=== PATIENT | male | born 1960 | race Caucasian/White ===

== ENCOUNTER 2023-02-20 10:30 | Emergency (ER) | payer OTHER, SELFPAY ==
[2023-02-20 10:35] VITALS: BP 169/87; PULSE 74; RESP 16; TEMP 36.9; O2SAT 95; BMI 31.6
--- NOTE | 2023-02-20 10:53 | ED.UPPEXIN1 ---
HPI - Extremity Injury (Upper) General Chief Complaint: Extremity Injury, Upper Stated Complaint: RT ARM PAIN Time Seen by Provider: 02/20/23 10:36 Source: patient Mode of arrival: walk-in Limitations: no limitations History of Present Illness HPI narrative: patient was attempting to lift a lawnmower and while flexing the right biceps he felt a tear and experienced sudden onset of pain in the right biceps. He has been taking ibuprofen since then. He is right handed. Pain has been persistent since the injury. He wants to know if anything serious is wrong. Related Data Home Medications Medication Instructions Recorded Confirmed amlodipine 10 mg tablet 10 mg PO DAILY 02/20/23 02/20/23 atorvastatin 40 mg tablet 40 mg PO BEDTIME 02/20/23 02/20/23 ezetimibe 10 mg tablet 10 mg PO DAILY 02/20/23 02/20/23 omeprazole 20 mg capsule,delayed 20 mg PO DAILY 02/20/23 02/20/23 release Previous Rx's Medication Instructions Recorded nabumetone 750 mg tablet 750 mg PO BID PRN pain #20 tabs 02/20/23 Allergies Allergy/AdvReac Type Severity Reaction Status Date / Time No Known Drug Allergies Allergy Verified 02/20/23 10:38 PFSH PFS Social History Smoking status: Never smoker Exam Narrative Exam Narrative: Nurses notes and vital signs reviewed and patient is not hypoxic. afebrile General: Well-appearing and in no apparent distress. Skin: Warm, dry, no pallor noted. No rash. Cardiovascular: Normal peripheral perfusion. Respiratory: No accessory muscle use or respiratory distress. Musculoskeletal: tenderness along the right biceps. He also has tenderness at the distal biceps tendon. There is some tenderness at the proximal forearm as well. He has good right biceps flexion on resistance and I do not see evidence of complete distal biceps tendon rupture. Distal right UE with normal sensation and ROM. No upper extremity edema/swelling Neurological: A&O x4. No cranial nerve dysfunction observed. No truncal ataxia. Moves all extremities. Sensation intact. Psychiatric: Cooperative and interactive. Normal mood and affect. Constitutional Vital Signs, click to edit/add: Last Vital Signs Temp 98.4 F 02/20/23 10:35 Pulse 74 02/20/23 10:35 Resp 16 02/20/23 10:35 BP 169/87 H 02/20/23 10:35 Pulse Ox 95 02/20/23 10:35 O2 Del Method Room Air 02/20/23 10:35 Course Vital Signs Vital signs: Vital Signs Temperature 98.4 F 02/20/23 10:35 Pulse Rate 74 02/20/23 10:35 Respiratory Rate 16 02/20/23 10:35 Blood Pressure 169/87 H 02/20/23 10:35 Pulse Oximetry 95 02/20/23 10:35 Oxygen Delivery Method Room Air 02/20/23 10:35 Temperature 98.4 F 02/20/23 10:35 Pulse Rate 74 02/20/23 10:35 Respiratory Rate 16 02/20/23 10:35 Blood Pressure 169/87 H 02/20/23 10:35 Pulse Oximetry 95 02/20/23 10:35 Oxygen Delivery Method Room Air 02/20/23 10:35 MDM - Extremity Injury (Upper) MDM Narrative Medical decision making narrative: Patient injured the right biceps and has tenderness along the distal biceps tendon. He did not sustain blunt trauma or fall and xrays will be of no use in this instance. He was prescribed Relafen for pain and scheduled to see Dr Serrano on Wednesday02/22/23 at 830am. Discharge Plan Discharge Chief Complaint: Extremity Injury, Upper Clinical Impression: Muscle strain of right upper extremity, Biceps tendonitis Patient Disposition: Home, Self-Care Time of Disposition Decision: 10:50 Prescriptions / Home Meds: New nabumetone 750 mg tablet 750 mg PO BID PRN (Reason: pain) Qty: 20 0RF No Action amlodipine 10 mg tablet 10 mg PO DAILY atorvastatin 40 mg tablet 40 mg PO BEDTIME ezetimibe 10 mg tablet 10 mg PO DAILY omeprazole 20 mg capsule,delayed release(DR/EC) 20 mg PO DAILY Instructions: Muscle Strain (ED), Arm Pain (ED) Stand Alone Forms: Portal Instructions Referrals: Wes Serrano MD [Physician] - 02/22/23 8:30 am
== END 2023-02-20 11:06 | disposition home or self-care (01) ==
PROVIDERS: Emergency Provider Emergency Medicine; PCP Family Medicine
DX: S46.211A Strain of muscle, fascia and tendon of other parts of biceps, right arm, initial encounter (principal); M75.21 Bicipital tendinitis, right shoulder; X50.9XXA Other and unspecified overexertion or strenuous movements or postures, initial encounter; Z79.899 Other long term (current) drug therapy
CPT/HCPCS: 99283

== ENCOUNTER 2023-02-22 08:37 | Outpatient (OUT) | payer OTHER, SELFPAY ==
--- NOTE | 2023-02-22 08:52 | XR_ITS ---
The [address] [address] Patient Name: NELY KOHLI MRN: [id number] date: 1960 Sex: M Assigned Patient Location: [facility] Current Patient Location: [facility] Accession/Order Number: [id number] Exam Date: 02/22/2023 08:46 Report Date: 02/22/2023 09:21 At the request of: ROSIE BILLINGS Procedure: XR shoulder RT min 2V PROCEDURE: XR shoulder RT min 2V COMPARISON: None. HISTORY: Acute Pain Of Right Shoulder M25.511 FINDINGS: BONES:No acute fracture or dislocation. Moderate acromioclavicular joint osteoarthropathy with 4 mm of subacromial spurring. Glenohumeral joint is intact. Degenerative spondylosis of the spine SOFT TISSUES:Minimal calcification along the distal rotator cuff insertion, rotator cuff tendinitis EFFUSION:None visible. OTHER: Negative. XR/XR shoulder RT min 2V IMPRESSION: Moderate acromioclavicular joint osteoarthropathy Electronically authenticated by: JORDY DAVIS Date: 02/22/2023 09:21
== END 2023-02-22 08:38 | disposition home or self-care (01) ==
LOC: RAD 08:39
PROVIDERS: PCP Family Medicine; Visit Provider Orthopaedic Surgery
DX: M25.511 Pain in right shoulder (principal)
CPT/HCPCS: 73030

== ENCOUNTER 2023-02-25 13:27 | Outpatient (OUT) | payer OTHER, SELFPAY ==
--- NOTE | 2023-02-25 14:10 | PM.PRESUREVA ---
History of Present Illness History of Present Illness Chief complaint: Right Distal Biceps Rupture Narrative: Patient presents for preadmission testing. Please see HPI from Dr. Serrano dated 02/22/2023. Review of Systems ROS Narrative Please see ROS from Dr. Serrano dated 02/22/2023. 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 - Powers's esophagus without dysplasia (ICD-10) Biceps rupture, distal ?S46.219A - Strain of muscle, fascia and tendon of other parts of biceps, unspecified arm, initial encounter (ICD-10) COVID-19 ?U07.1 - COVID-19 (ICD-10) GERD (gastroesophageal reflux disease) ?K21.9 - Gastro-esophageal reflux disease without esophagitis (ICD-10) High cholesterol ?E78.00 - Pure hypercholesterolemia, unspecified (ICD-10) Hypertension ?I10 - Essential (primary) hypertension (ICD-10) Kidney stones ?N20.0 - Calculus of kidney (ICD-10) Postoperative nausea and vomiting ?R11.2 - Nausea with vomiting, unspecified (ICD-10) ?Z98.890 - Other specified postprocedural states (ICD-10) Surgical History (Updated 02/25/23 @ 13:50 by Cinthya Garcia NP) History of arthroscopy of knee ?Z98.890 - Other specified postprocedural states (ICD-10) History of colonoscopy ?Z98.890 - Other specified postprocedural states (ICD-10) History of esophagogastroduodenoscopy (EGD) ?Z98.890 - Other specified postprocedural states (ICD-10) Family History (Updated 02/25/23 @ 13:50 by Cinthya Garcia NP) Other Family history of diabetes mellitus Family history of hypertension Family history of myocardial infarction Family history of stroke Family history of throat cancer Lymphoma Social History (Updated 02/25/23 @ 13:47 by Cinthya Garcia NP) Within the past year, how often did you have a drink containing alcohol: never Score interpretation: A score less than 4 is consistent with normal alcohol consumption. Smoking status: Former smoker Non-prescribed substance use: denies use Previous occupational history: [employer] Highest level of school completed/degree received: high school graduate Meds Home Medications and Allergies Home Medications Medication Instructions Recorded Confirmed Type amlodipine 10 mg tablet 10 mg PO DAILY 02/20/23 02/25/23 History atorvastatin 40 mg tablet 40 mg PO BEDTIME 02/20/23 02/25/23 History ezetimibe 10 mg tablet 10 mg PO DAILY 02/20/23 02/25/23 History nabumetone 750 mg tablet 750 mg PO BID PRN pain #20 tabs 02/20/23 Rx omeprazole 20 mg capsule,delayed 20 mg PO DAILY 02/20/23 02/25/23 History release aspirin 81 mg tablet,delayed 81 mg PO DAILY 02/25/23 02/25/23 History release (Adult Aspirin Regimen) Allergies Allergy/AdvReac Type Severity Reaction Status Date / Time No Known Drug Allergies Allergy Verified 02/25/23 13:46 Exam Narrative Exam Narrative: Constitutional: Awake, alert, comfortable, well-appearing, nontoxic, interactive, vital signs as charted Head: Normocephalic, atraumatic Neck: Supple, normal appearance, normal range of motion, no meningeal signs, no lymphadenopathy Respiratory: No respiratory distress, breath sounds clear Cardiovascular: Regular rate and rhythm, strong and regular heart tones Skin: No rashes or induration, no lesions, only visible skin inspected Neuro: No neurological deficits, normal sensation Psychiatric: Oriented ?3, normal affect Assessment and Plan Assessment and Plan (1) Biceps rupture, distal: Plan Right distal bicep repair scheduled with Dr. Serrano 03/01/2023.
[2023-02-25 14:18] LABS: Basophils Absolute Auto 0.1 10^3/uL (0.0-0.1); Basophils Percent Auto 1.1 % (0.2-2.0); Eosinophils Absolute Auto 0.3 10^3/uL (0.0-0.7); Eosinophils Percent Auto 4.8 % (0.9-7.0); Hematocrit 42.2 % (42.0-54.0); Hemoglobin 14.3 g/dL (14.0-18.0); Immature Granulocytes Abs Auto 0.01 10^3/uL (0.00-0.03); Immature Granulocytes Pct Auto 0.2 % (0.0-0.5); Lymphocytes Absolute Auto 1.4 10^3/uL (1.2-3.8); Mean Corpuscular HGB Conc 33.9 g/dL (29.9-35.2); Mean Corpuscular Hemoglobin 29.7 pg (25.9-34.0); Mean Corpuscular Volume 87.6 fL (80.0-94.0); Mean Platelet Volume 11.4 fL (9.5-13.5); Monocytes Absolute Auto 0.6 10^3/uL (0.3-0.8); Monocytes Percent Auto 11.6 % (1.7-12.0); Neutrophils Absolute Auto 3.1 10^3/uL (1.4-6.5); Neutrophils Percent Auto 57.3 % (43.0-75.0); Platelet Count 177 10^3/uL (150-450); Red Blood Count 4.82 10^6/uL (4.70-6.10); Red Cell Distribution Width 13.1 % (11.0-15.0); White Blood Count 5.4 10^3/uL (4.0-11.0)
[2023-02-25 14:31] LABS: Anion Gap 9.2; BUN Creatinine Ratio 20.2; Calcium 8.5 mg/dL (8.5-10.1); Carbon Dioxide 29.8 mmol/L (21.0-32.0); Chloride 104 mmol/L (98-107); Estimated GFR (African America >60 (>=60); Estimated GFR (Non-African Ame >60 (>=60); Glucose 75 mg/dL (74-106); Sodium 139 mmol/L (136-145)
== END 2023-02-25 13:28 | disposition home or self-care (01) ==
LOC: PST 13:27
PROVIDERS: PCP Family Medicine; Visit Provider Orthopaedic Surgery
DX: Z01.812 Encounter for preprocedural laboratory examination (principal); I10 Essential (primary) hypertension; S46.211A Strain of muscle, fascia and tendon of other parts of biceps, right arm, initial encounter
CPT/HCPCS: 80048; 85025; G0463

== ENCOUNTER 2023-03-01 11:00 | Day surgery (SDC) | payer OTHER, SELFPAY ==
[2023-02-25 14:02] VITALS: BP 141/70; PULSE 74; RESP 18; TEMP 36.8; O2SAT 97; BMI 32.2
[2023-03-01] VITALS (32 sets, daily range): BP systolic 102–168; BP diastolic 54–74; PULSE 62–84; RESP 0–21; TEMP 36.4–37.2; O2SAT 80–99; BMI 31.3
[2023-03-01] MEDS: LACTATED RINGER'S SOLUTION 1,000 ML 50 ML IV (11:23)
[2023-03-01] MEDS: SCOPOLAMINE 1 MG/3 DAYS TRANSDERM PATCH 1 PATCH TD (11:53)
[2023-03-01] MEDS: CEFAZOLIN SODIUM/DEXTROSE,ISO 2 GM/50 ML PIGGYBACK IV (12:18)
[2023-03-01] MEDS: BUPIVACAINE HCL 0.5% PF 50 MG/10 ML VIAL 20 ML INJ (13:44)
[2023-03-01] MEDS: HYDROMORPHONE HCL 0.5 MG/0.5 ML SYRINGE IV ×4 (14:09→15:59)
--- NOTE | 2023-03-01 14:12 | P.ORPRC_ITS ---
Procedure Note Date of procedure: 03/01/23 Pre-op diagnosis: Right distal biceps tendon tear Post-op diagnosis: same as pre-op Procedure: Operation performed: Right distal biceps tendon repair Operative procedure: After informed consent was obtained the patient was brought to the operating room where a general anesthetic was administered. A well-padded proximal arm tourniquet was placed on the right arm was prepped and draped in the usual sterile fashion. The arm was elevated, exsanguinated, and the tourniquet was inflated to 225 mmHg. A 4 cm incision was made 3 cm distal to the antecubital flexion crease of the right elbow. Blunt dissection was carried down in order to preserve the superficial veins. The tendon was identified and retracted 4 cm. This was mobilized bluntly and then an Arthrex suture loop was placed in a running locking fashion for 2-1/2 cm. The distal 1 cm was tendinopathic and was removed sharply with a 15 blade. 2 suture ends were placed through the Arthrex biceps button in the standard fashion. Attention was next turned to identifying the radial tuberosity. Blunt dissection was carried down to the radial tuberosity. The Arthrex spade tip guidepin was placed in a bicortical position in the center of the radial tuberos ity. A unicortical 8 mm drill hole was created over the top of this. This was next irrigated and bony debris was removed. The biceps button was then passed to the far cortex and flipped. Sutures were pulled introducing the tendon into the tunnel. Sutures were then tied. This is then backed up with an Arthrex 7 x 10 mm peek tenodesis screw. Solid fixation was achieved. The arm could be exte nded until the last 30 degrees at which point there was significant tension on the repair. The wound was irrigated. Tourniquet was deflated. Hemostasis was achieved with bipolar electrocautery. Wound was closed in standard fashion with absorbable suture. Steri-Strips and sterile dressing were placed. A well-padded posterior fiberglass splint was placed in 90 degrees of flexion. Patient was awakened and brought to the recovery room in stable condition. There were no intraoperative or immediate postoperative complications. Anesthesia: HEAVENLY Surgeon: Wes Serrano Programming Instructor: Yvette Krueger Estimated blood loss (mL): 10 Pathology: none sent Condition: stable Disposition: PACU
[2023-03-01] MEDS: MIDAZOLAM HCL 2 MG/2 ML VIAL IV (14:13)
[2023-03-01] MEDS: OXYCODONE HCL/ACETAMINOPHEN 5MG/325MG 1 TAB PO ×2 (14:30→15:31)
[2023-03-01] MEDS: PROMETHAZINE HCL 25 MG/ML VIAL 12.5 MG IV (14:32)
[2023-03-01] MEDS: TRAMADOL HCL 50 MG TABLET 100 MG PO (17:01)
== END 2023-03-01 18:10 | disposition home or self-care (01) ==
PROVIDERS: PCP Family Medicine; Visit Provider Orthopaedic Surgery
PROC: (CPT 24341; principal; 2023-03-01 12:00)
DX: S46.211A Strain of muscle, fascia and tendon of other parts of biceps, right arm, initial encounter (principal); I10 Essential (primary) hypertension; Z86.16 Personal history of COVID-19; K21.9 Gastro-esophageal reflux disease without esophagitis; E78.00 Pure hypercholesterolemia, unspecified; Z87.442 Personal history of urinary calculi; Z87.891 Personal history of nicotine dependence; Z79.82 Long term (current) use of aspirin; X58.XXXA Exposure to other specified factors, initial encounter
CPT/HCPCS: 24341; 36415; 82948; C1713; J1170; J2704

== ENCOUNTER 2023-04-14 08:53 | Outpatient (RCR) | payer OTHER, SELFPAY | END 2023-05-16 08:20 | disposition home or self-care (01) | LOC: PT 08:53 | PROVIDERS: PCP Family Medicine; Visit Provider Orthopaedic Surgery | DX: S46.211D Strain of muscle, fascia and tendon of other parts of biceps, right arm, subsequent encounter (principal) | CPT/HCPCS: 97010; 97110; 97140; 97162 ==

== ENCOUNTER 2023-04-16 12:52 | Outpatient (RCR) | payer OTHER, SELFPAY | END 2023-05-16 08:20 | disposition home or self-care (01) | LOC: OT 12:52 | PROVIDERS: PCP Family Medicine; Visit Provider Orthopaedic Surgery | DX: S46.211D Strain of muscle, fascia and tendon of other parts of biceps, right arm, subsequent encounter (principal) | CPT/HCPCS: 97018; 97140; 97165; 97530 ==

== ENCOUNTER 2023-05-17 10:26 | Outpatient (RCR) | payer OTHER, SELFPAY | END 2023-06-02 16:58 | disposition home or self-care (01) | LOC: PT 10:26 | PROVIDERS: PCP Family Medicine; Visit Provider Orthopaedic Surgery | DX: S46.211D Strain of muscle, fascia and tendon of other parts of biceps, right arm, subsequent encounter (principal) | CPT/HCPCS: 97018; 97110; 97140; 97530 ==

== ENCOUNTER 2023-05-17 10:26 | Outpatient (RCR) | payer OTHER, SELFPAY | END 2023-06-10 16:58 | disposition home or self-care (01) | LOC: OT 10:26 | PROVIDERS: PCP Family Medicine; Visit Provider Orthopaedic Surgery | DX: S46.211D Strain of muscle, fascia and tendon of other parts of biceps, right arm, subsequent encounter (principal) | CPT/HCPCS: 97018; 97140; 97530 ==